=== PATIENT | female | born 2000 | race Two or more races ===

== ENCOUNTER → 2025-03-07 14:23 | Outpatient (CLI) | payer OTHER | END | disposition home or self-care (01) | LOC: PRENATAL 14:23 | PROVIDERS: ATTEND Obstetrics & Gynecology Maternal & Fetal Medicine | DX: O44.00 Complete placenta previa NOS or without hemorrhage, unspecified trimester (principal); Z3A.23 23 weeks gestation of pregnancy ==

== ENCOUNTER 2025-05-14 13:32 | Outpatient (CLI) | payer OTHER | END 2025-05-14 13:33 | disposition home or self-care (01) | LOC: PRENATAL 13:32 | DX: O26.849 Uterine size-date discrepancy, unspecified trimester (principal); O36.8199 Decreased fetal movements, unspecified trimester, other fetus; Z3A.33 33 weeks gestation of pregnancy ==

== ENCOUNTER 2025-07-14 19:03 | Inpatient (IN) | payer OTHER ==
[~2025-07-14] VITALS: Ht 167.6 cm; Wt 86.2 kg
[2025-07-14] MEDS ORDERED: LASIX20 MG (19:18)
[2025-07-14] MEDS ORDERED: TOPROL XL25 M1 (19:19)
[2025-07-14] MEDS ORDERED: HORIZANT300 MG (19:19)
[2025-07-14] MEDS ORDERED: ALDACTONE25 MG (19:19)
[2025-07-14] MEDS ORDERED: COZAAR25 MG (19:20)
[2025-07-14 22:34] LABS: BASO % 0.9 % (0.1-1.2); EOS # 0.51 (0.04-0.54); EOS % 8.7 % (0.7-7.0); LYMPH # 1.94 (1.18-3.74); LYMPH % 33.0 % (19.3-53.1); MEAN PLATELET VOLUME 9.60 fl (9.4-12.4); MONO # 0.33 (0.24-0.82); MONO % 5.6 % (4.7-12.5); NEUT # 3.03 (1.56-6.13); RED CELL DISTRIBUTION WIDTH 12.3 % (11.6-14.4)
[2025-07-14 22:35] LABS: URINE APPEARANCE Clear; URINE BILIRRUBIN Negative (NEGATIVE); URINE BLOOD Moderate; URINE COLOR Yellow; URINE GLUCOSE Negative (NEGATIVE); URINE KETONE Negative (NEGATIVE); URINE LEUKOCYTE Moderate; URINE NITRATE Negative; URINE PROTEIN Negative (NEGATIVE); URINE UROBILINOGEN 1.0 E.U./dl
[2025-07-14 22:38] LABS: URINE BACTERIA 569.8 uL (0.0-1933); URINE EPITHELIAL CELLS 21.9 uL (0.0-38.8); URINE RBC 4.6 uL (0.0-20.8); URINE WBC 27.9 uL (0.0-23.2)
[2025-07-14 22:40] LABS: URINE CAST 0.00 uL (0.0-1.40)
[2025-07-14 22:42] LABS: ALT/SGPT 22.0 U/L (12-78); AST/SGOT 15.0 U/L (15-37); BILIRUBIN TOTAL 0.71 mg/dL (0.3-1.2); BUN CREA RATIO 15.0 (7.0-25.0); CREATININE SERUM 0.91 mg/dL (0.55-1.02); GFR 75.95; GLOBULINA 3.8 G/DL (2.4-3.5); GLUCOSE FASTING 116.0 mg/dL (65-100); OSMOLALITY SERUM 283.0 MOSM/KG (275-295)
[2025-07-14 22:46] LABS: NEUT % 51.6 % (34.0-71.1)
[2025-07-14 23:46] LABS: EOSINOPHIL MAN 6.0 %; LYMPHOCYTE MAN 37.0 %; MONOCYTE MAN 5.0 %; NEUTROPHILS MAN 52.0 %
[2025-07-15] MEDS ORDERED: TICAGRELOR 90 MG TABLET PO STA (01:48)
[2025-07-15] MEDS ORDERED: NITROGLYCERIN 250 ML IV SCH (02:00)
[2025-07-15] MEDS ORDERED: NITROGLYCERIN IN 5 % DEXTROSE 250 ML IV SCH (08:30)
[2025-07-15] MEDS ORDERED: IPRATROPIUM BROMIDE 0.5 MG/2.5 ML AMPUL.NEB IH SCH (10:50)
[2025-07-15] MEDS ORDERED: METOPROLOL SUCCINATE 50 MG TAB.SR.24H PO SCH (10:52)
[2025-07-15] MEDS ORDERED: PANTOPRAZOLE SODIUM 40 MG/VIAL VIAL IV PUSH SCH (10:52)
[2025-07-15] MEDS ORDERED: ENOXAPARIN SODIUM 40 MG/0.4 ML SYRINGE SUBCUTANEO SCH (10:52)
[2025-07-15] MEDS ORDERED: DOCUSATE SODIUM 100MG CAP PO SCH (10:53)
[2025-07-15] MEDS ORDERED: ATORVASTATIN CALCIUM 20 MG TABLET PO SCH (10:53)
[2025-07-15] MEDS ORDERED: ACETAMINOPHEN 500 MG GEL..CAP PO PRN (11:00)
[2025-07-15 11:13] VITALS: BP 128/78; BP 136/82; O2SAT 98
[2025-07-15 16:35] VITALS: BP 118/72; O2SAT 100
[2025-07-16 02:23] VITALS: BP 105/70; O2SAT 97
[2025-07-16 06:18] LABS: BASO % 1.0 % (0.1-1.2); EOS # 0.39 (0.04-0.54); EOS % 7.7 % (0.7-7.0); LYMPH # 1.44 (1.18-3.74); LYMPH % 28.5 % (19.3-53.1); MEAN PLATELET VOLUME 9.90 fl (9.4-12.4); MONO # 0.24 (0.24-0.82); MONO % 4.7 % (4.7-12.5); NEUT # 2.93 (1.56-6.13); NEUT % 57.9 % (34.0-71.1); RED CELL DISTRIBUTION WIDTH 12.3 % (11.6-14.4)
[2025-07-16 06:56] LABS: INR 1.0
[2025-07-16 07:12] LABS: ALT/SGPT 19.0 U/L (12-78); AST/SGOT 12.0 U/L (15-37); BILIRUBIN TOTAL 0.84 mg/dL (0.3-1.2); BUN CREA RATIO 14.0 (7.0-25.0); CHOL HDL RATIO 4.7 (0-5.0); CREATININE SERUM 0.77 mg/dL (0.55-1.02); GFR 92.1; GLOBULINA 3.3 G/DL (2.4-3.5); GLUCOSE FASTING 97.0 mg/dL (65-100); HDL 45.0 mg/dl (40-60); LDL 129.0 mg/dl (0-130); OSMOLALITY SERUM 282.0 MOSM/KG (275-295); T4 FREE 1.06 NG/ML (0.76-1.46); TSH 0.8 uIU/mL (0.358-3.74); VLDL 36.0 (0-39)
[2025-07-16] MEDS ORDERED: LOSARTAN POTASSIUM 50 MG TABLET PO SCH (09:00)
[2025-07-16 09:19] VITALS: BP 104/62; O2SAT 98
[2025-07-16 16:30] VITALS: BP 118/67; O2SAT 98
[2025-07-17 02:24] VITALS: BP 100/58; O2SAT 100
[2025-07-17 06:47] LABS: URINE APPEARANCE Clear; URINE BILIRRUBIN Negative (NEGATIVE); URINE BLOOD Moderate; URINE COLOR Yellow; URINE GLUCOSE Negative (NEGATIVE); URINE KETONE Trace (NEGATIVE); URINE LEUKOCYTE Negative; URINE NITRATE Negative; URINE PROTEIN Negative (NEGATIVE); URINE UROBILINOGEN 1.0 E.U./dl
[2025-07-17 06:50] LABS: URINE BACTERIA 628.7 uL (0.0-1933); URINE EPITHELIAL CELLS 21.6 uL (0.0-38.8); URINE WBC 16.9 uL (0.0-23.2)
[2025-07-17 07:12] LABS: URINE CAST 0.00 uL (0.0-1.40); URINE RBC 1.9 uL (0.0-20.8)
[2025-07-17 07:13] LABS: URINE EPITHELIAL CELLS 0-4 /HPF
[2025-07-17 08:11] LABS: URINE PROT QUANT 24HR 7.7 MG/DL
[2025-07-17 08:12] LABS: URINE PROT QUANT 24 HR 100.1 MG/24HR (42-225)
[2025-07-17 08:30] VITALS: BP 128/73
[2025-07-17] MEDS ORDERED: LOSARTAN POTASSIUM 25 MG TABLET PO SCH (09:00)
== END 2025-07-17 18:17 | disposition designated cancer center or children's hospital (05) | DRG 292 ==
LOC: ER 19:03 → SEC-K 07-15 10:55 → MEDI 07-15 10:55
PROVIDERS: Emergency Medicine; ADMIT Internal Medicine; ATTEND Internal Medicine
PROC: B020ZZZ Computerized Tomography (CT Scan) of Brain (ICD-10-PCS; principal; 2025-07-15)
PROC: B24BYZZ Ultrasonography of Heart with Aorta using Other Contrast (ICD-10-PCS; 2025-07-15)
PROC: 4A12X4Z Monitoring of Cardiac Electrical Activity, External Approach (ICD-10-PCS; 2025-07-15)
DX: I50.20 Unspecified systolic (congestive) heart failure (principal); N39.0 Urinary tract infection, site not specified; I50.21 Acute systolic (congestive) heart failure; I49.9 Cardiac arrhythmia, unspecified; R55 Syncope and collapse; F43.21 Adjustment disorder with depressed mood